=== PATIENT | male | born 1995 | race Caucasian/White ===

== ENCOUNTER 2018-07-27 06:13 | Emergency (ER) | payer BC, OTHER ==
[2018-07-27 06:19] VITALS: PULSE 78; RESP 18
[2018-07-27] MEDS: PANTOPRAZOLE 40 MG/10 ML VIAL IVP STA (06:48)
[2018-07-27] MEDS: ONDANSETRON 4 MG/2 ML VIAL IVP STA ×2 (06:48→06:49)
[2018-07-27] MEDS: SODIUM CHLORIDE 0.9% 1,000 ML IV STA ×3 (06:48→06:49)
[2018-07-27 06:51] LABS: Basophils % (A) 0 %; Eosinophils # (A) 0.2 k/uL (0-0.7); Eosinophils % (A) 2 %; HCT 50.6 % (39.0-53.0); Lymphocytes # (A) 0.3 k/uL (1.0-4.8); Lymphocytes % (A) 3 %; MCH 31.1 pg (25.0-35.0); MCHC 33.6 g/dL (31.0-37.0); MCV 92.6 fL (80.0-100.0); Mean Platelet Volume 7.4; Monocytes # (A) 0.4 k/uL (0-1.0); Monocytes % (A) 3 %; Neutrophils # (A) 9.4 k/uL (1.3-7.7); Neutrophils % (A) 91 %; Platelet Count 188 k/uL (150-450); RBC 5.46 m/uL (4.30-5.90); RDW 12.4 % (11.5-15.5); WBC 10.3 k/uL (3.8-10.6)
[2018-07-27 07:02] LABS: ALT 35 U/L (21-72); AST 24 U/L (17-59); Albumin 5.3 g/dL (3.5-5.0); Alkaline Phosphatase 81 U/L (38-126); Amylase 56 U/L (30-110); Anion Gap 10 mmol/L; Blood Urea Nitrogen 18 mg/dL (9-20); Carbon Dioxide 28 mmol/L (22-30); Chloride 101 mmol/L (98-107); Glucose 113 mg/dL (74-99); Lipase 60 U/L (23-300); Magnesium 1.7 mg/dL (1.6-2.3); Phosphorus 2.3 mg/dL (2.5-4.5); Potassium 3.6 mmol/L (3.5-5.1); Sodium 139 mmol/L (137-145); Total Bilirubin 0.9 mg/dL (0.2-1.3); Total Protein 8.1 g/dL (6.3-8.2)
--- NOTE | 2018-07-27 07:33 | ED ---
General Adult HPI - General Chief complaint: Nausea/Vomiting/Diarrhea Stated complaint: Vomiting Time Seen by Provider: 07/27/18 07:18 Source: patient, RN notes reviewed Mode of arrival: ambulatory Limitations: no limitations - History of Present Illness Initial comments: Patient is a pleasant 23-year-old male presenting to the emergency Department with complaints of nausea and vomiting. Onset of symptoms was around 11:30 last night. Patient has had approximately a dozen episodes of vomiting. Patient received antiemetic in the emergency department and is starting to feel somewhat better. No constipation or diarrhea. No significant abdominal discomfort however patient has some mild nausea. - Related Data Home Medications Medication Instructions Recorded Confirmed [id number]-Cuke [id number] 2 tab PO Q6HR PRN 07/27/18 07/27/18 [Excedrin] Previous Rx's Medication Instructions Recorded Ondansetron Odt [Zofran Odt] 4 mg PO Q8HR PRN #10 tab 07/27/18 Allergies Allergy/AdvReac Type Severity Reaction Status Date / Time No Known Allergies Allergy Verified 07/27/18 06:56 Review of Systems ROS Statement: Those systems with pertinent positive or pertinent negative responses have been documented in the HPI. ROS Other: All systems not noted in ROS Statement are negative. Constitutional: Denies: fever Eyes: Denies: eye pain ENT: Denies: ear pain Respiratory: Denies: cough Cardiovascular: Denies: chest pain Endocrine: Denies: fatigue Gastrointestinal: Reports: nausea, vomiting. Denies: diarrhea, constipation Genitourinary: Denies: dysuria Musculoskeletal: Denies: arthralgia Skin: Denies: rash Neurological: Denies: weakness Past Medical History Past Medical History: COPD History of Any Multi-Drug Resistant Organisms: None Reported Past Surgical History: No Surgical Hx Reported Past Psychological History: No Psychological Hx Reported Smoking Status: Never smoker Past Alcohol Use History: None Reported Past Drug Use History: None Reported General Exam Limitations: no limitations General appearance: alert, in no apparent distress Head exam: Present: atraumatic Eye exam: Present: normal appearance, PERRL ENT exam: Present: normal oropharynx Neck exam: Present: normal inspection Respiratory exam: Present: normal lung sounds bilaterally Cardiovascular Exam: Present: regular rate, normal rhythm GI/Abdominal exam: Present: soft. Absent: distended, tenderness Extremities exam: Present: normal inspection Back exam: Present: normal inspection. Absent: tenderness Neurological exam: Present: alert Psychiatric exam: Present: normal affect, normal mood Skin exam: Present: normal color Course Vital Signs 07/27/18 06:15 Temperature 98.6 F Pulse Rate 78 Respiratory 18 Rate Blood Pressure 117/71 O2 Sat by Pulse 98 Oximetry Medical Decision Making - Medical Decision Making Patient reevaluated and does feel much better. Patient does not want any further medication and is requesting discharge at this time. Patient updated on results and need for follow-up. - Lab Data Result diagrams: 07/27/18 06:34 07/27/18 06:34 Lab Results 07/27/18 07/27/18 07/27/18 Range/Units 06:34 06:34 07:59 WBC 10.3 (3.8-10.6) k/uL RBC 5.46 (4.30-5.90) m/uL Hgb 17.0 (13.0-17.5) gm/dL Hct 50.6 (39.0-53.0) % MCV 92.6 (80.0-100.0) fL MCH 31.1 (25.0-35.0) pg MCHC 33.6 (31.0-37.0) g/dL RDW 12.4 (11.5-15.5) % Plt Count 188 (150-450) k/uL Neutrophils % 91 % Lymphocytes % 3 % Monocytes % 3 % Eosinophils % 2 % Basophils % 0 % Neutrophils # 9.4 H (1.3-7.7) k/uL Lymphocytes # 0.3 L (1.0-4.8) k/uL Monocytes # 0.4 (0-1.0) k/uL Eosinophils # 0.2 (0-0.7) k/uL Basophils # 0.0 (0-0.2) k/uL Sodium 139 (137-145) mmol/L Potassium 3.6 (3.5-5.1) mmol/L Chloride 101 (98-107) mmol/L Carbon Dioxide 28 (22-30) mmol/L Anion Gap 10 mmol/L BUN 18 (9-20) mg/dL Creatinine 0.87 (0.66-1.25) mg/dL Est GFR (CKD-EPI)AfAm >90 (>60 ml/min/1.73 sqM) Est GFR (CKD-EPI)NonAf >90 (>60 ml/min/1.73 sqM) Glucose 113 H (74-99) mg/dL Calcium 10.0 (8.4-10.2) mg/dL Phosphorus 2.3 L (2.5-4.5) mg/dL Magnesium 1.7 (1.6-2.3) mg/dL Total Bilirubin 0.9 (0.2-1.3) mg/dL AST 24 (17-59) U/L ALT 35 (21-72) U/L Alkaline Phosphatase 81 (38-126) U/L Total Protein 8.1 (6.3-8.2) g/dL Albumin 5.3 H (3.5-5.0) g/dL Amylase 56 (30-110) U/L Lipase 60 (23-300) U/L Urine Color Yellow Urine Appearance Clear (Clear) Urine pH 7.0 (5.0-8.0) Ur Specific [place] 1.020 (1.001-1.035) Urine Protein Negative (Negative) Urine Glucose (UA) Negative (Negative) Urine Blood Negative (Negative) Urine Nitrite Negative (Negative) Urine Bilirubin Negative (Negative) Urine Urobilinogen 2.0 (<2.0) mg/dL Ur Leukocyte Esterase Negative (Negative) Disposition Clinical Impression: Vomiting Disposition: HOME SELF-CARE Condition: Stable Instructions (If sedation given, give patient instructions): Acute Nausea and Vomiting (ED) Additional Instructions: Please follow-up with primary care physician in the next day or 2 for recheck. Return for uncontrolled vomiting, pain, worsening or change in symptoms or other concerns. Prescriptions: Ondansetron Odt [Zofran Odt] 4 mg PO Q8HR PRN #10 tab PRN Reason: Nausea Is patient prescribed a controlled substance at d/c from ED?: No Referrals: Joshua Smith MD [REFERRING] - 1-2 days Ramon Martins MD [STAFF PHYSICIAN] - 1-2 days Time of Disposition: 08:19
[2018-07-27 08:10] LABS: Appearance,Urine Clear (Clear); Bilirubin,Urine Negative (Negative); Blood,Urine Negative (Negative); Color,Urine Yellow; Glucose,Urine (UA) Negative (Negative); Ketones,Urine 2+ (Negative); Leukocyte Esterase,Urine Negative (Negative); Nitrite,Urine Negative (Negative); Protein,Urine Negative (Negative)
[2018-07-27 08:27] VITALS: BP 115/68; TEMP 98
== END 2018-07-27 08:27 | disposition home or self-care (01) ==
LOC: EC 06:13
DX: R11.2 Nausea with vomiting, unspecified (principal); Z53.8 Procedure and treatment not carried out for other reasons
CPT/HCPCS: 36415; 80053; 82150; 83690; 83735; 84100; 85025; 81003; 99284; 96374; 96375; 96361; J2405; C9113

== ENCOUNTER 2021-07-20 13:09 | Emergency (ER) | payer OTHER ==
[2021-07-20 13:30] VITALS: BP 103/69; PULSE 102; RESP 20; TEMP 98.1
[2021-07-20] MEDS ORDERED: ACETAMINOPHEN TAB 325 MG TAB PO STA (13:31)
[2021-07-20] MEDS ORDERED: SODIUM CHLORIDE 0.9% 1,000 ML IV STA (13:54)
[2021-07-20] MEDS ORDERED: MORPHINE SULFATE 4 MG/ML SYRINGE IVP STA (13:54)
[2021-07-20 14:31] LABS: Basophils % (A) 1 %; Eosinophils # (A) 0.1 k/uL (0-0.7); Eosinophils % (A) 1 %; Lymphocytes # (A) 0.9 k/uL (1.0-4.8); Lymphocytes % (A) 10 %; MCHC 34.2 g/dL (31.0-37.0); MCV 93.4 fL (80.0-100.0); Mean Platelet Volume 8.3; Monocytes # (A) 0.4 k/uL (0-1.0); Monocytes % (A) 5 %; Neutrophils # (A) 7.2 k/uL (1.3-7.7); Neutrophils % (A) 83 %; Platelet Count 211 k/uL (150-450); RBC 4.39 m/uL (4.30-5.90); RDW 13.2 % (11.5-15.5); WBC 8.7 k/uL (3.8-10.6)
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
[2021-07-20 14:46] LABS: African American GFR (CKD) >90 (>60 ml/min/1.73 sqM); Anion Gap 12 mmol/L; Blood Urea Nitrogen 19 mg/dL (9-20); C Reactive Protein <0.5 mg/dL (<1.0); Calcium 9.6 mg/dL (8.4-10.2); Carbon Dioxide 26 mmol/L (22-30); Chloride 101 mmol/L (98-107); Glucose 90 mg/dL (74-99); Non-African American GFR(CKD) >90 (>60 ml/min/1.73 sqM); Potassium 3.6 mmol/L (3.5-5.1); Sodium 139 mmol/L (137-145)
[2021-07-20] MEDS ORDERED: CLINDAMYCIN 300 MG in DEXTROSE 5% IN WATER 50 ML IVPB STA ×2 (14:54)
[2021-07-20] MEDS ORDERED: CLINDAMYCIN 150 MG CAP PO STA (15:08)
[2021-07-20 15:25] LABS: Erythrocyte Sedimentation Rate 2 mm/hr (0-15)
== END 2021-07-20 15:24 | disposition home or self-care (01) ==
LOC: EC 13:09
DX: S89.91XA Unspecified injury of right lower leg, initial encounter (principal); S82.001A Unspecified fracture of right patella, initial encounter for closed fracture; J45.909 Unspecified asthma, uncomplicated; X58.XXXA Exposure to other specified factors, initial encounter
CPT/HCPCS: 36415; 80048; 83605; 83735; 85025; 85652; 86140; 87040; 99283

== ENCOUNTER 2021-11-01 10:14 | Emergency (ER) | payer OTHER ==
[2021-11-01 10:22] VITALS: TEMP 98.3
[2021-11-01] MEDS ORDERED: HYOSCYAMINE SULFATE 0.125 MG TAB PO STA (10:58)
--- NOTE | 2021-11-01 11:47 | CT ---
EXAMINATION TYPE: CT abdomen pelvis wo con DATE OF EXAM: 11/01/2021 COMPARISON: None available HISTORY: diarrhea CT DLP: 328.3 mGycm Automated exposure control for dose reduction was used. TECHNIQUE: Helical acquisition of images was performed from the lung bases through the pelvis. FINDINGS: LUNG BASES: No significant abnormality is appreciated. LIVER/GB: No significant abnormality is appreciated. PANCREAS: No significant abnormality is seen. SPLEEN: No significant abnormality is seen. ADRENALS: No significant abnormality is seen. KIDNEYS: No significant abnormality is seen. FREE AIR: No free air is visualized RETROPERITONEAL ADENOPATHY: None visualized REPRODUCTIVE ORGANS: No significant abnormality is seen URINARY BLADDER: Not completely distended. PELVIC ADENOPATHY: No pathologically enlarged lymph nodes. OSSEOUS STRUCTURES: No aggressive bone lesion. BOWEL: Unremarkable nondistended stomach and duodenum. Suboptimal assessment of the small and large bowel due to paucity of intra-abdominal fat and lack of IV contrast administration. Slightly thickene d small bowel loops in the left side of the abdomen with surrounding fat stranding, underlying inflam matory/infectious process cannot be excluded. No evidence of bowel obstruction. Segments of mild wall thickening of the colon, nonspecific. No colonic obstruction. No evidence of acute appendicitis. OTHER: No sizable ascites. IMPRESSION: No evidence of small or large bowel obstruction. The described changes in the left side of the abdome n could be related to acute inflammatory/infectious process of the small bowel, please correlate clin ically. Mild colitis cannot be also excluded.
[2021-11-01 12:11] LABS: Appearance,Urine Clear (Clear); Bilirubin,Urine Negative (Negative); Blood,Urine Negative (Negative); Color,Urine Yellow; Glucose,Urine (UA) Negative (Negative); Ketones,Urine Negative (Negative); Leukocyte Esterase,Urine Negative (Negative); Nitrite,Urine Negative (Negative); Protein,Urine Negative (Negative); Specific Gravity,Urine 1.021 (1.001-1.035); Urobilinogen,Urine <2.0 mg/dL (<2.0)
[2021-11-01 13:45] VITALS: BP 128/79; PULSE 78; RESP 18
[2021-11-01 13:51] LABS: Basophils # (A) 0.1 k/uL (0-0.2); Basophils % (A) 1 %; Eosinophils % (A) 1 %; HCT 50.9 % (39.0-53.0); HGB 16.4 gm/dL (13.0-17.5); Lymphocytes # (A) 1.1 k/uL (1.0-4.8); Lymphocytes % (A) 18 %; MCH 31.1 pg (25.0-35.0); MCHC 32.3 g/dL (31.0-37.0); MCV 96.3 fL (80.0-100.0); Mean Platelet Volume 9.3; Monocytes # (A) 0.3 k/uL (0-1.0); Monocytes % (A) 5 %; Neutrophils # (A) 4.5 k/uL (1.3-7.7); Neutrophils % (A) 75 %; Platelet Count 237 k/uL (150-450); RBC 5.28 m/uL (4.30-5.90); RDW 12.1 % (11.5-15.5)
[2021-11-01 14:14] LABS: ALT 23 U/L (4-49); AST 30 U/L (17-59); African American GFR (CKD) >90 (>60 ml/min/1.73 sqM); Albumin 4.9 g/dL (3.5-5.0); Alkaline Phosphatase 70 U/L (38-126); Amylase 68 U/L (30-110); Anion Gap 7 mmol/L; Blood Urea Nitrogen 14 mg/dL (9-20); Calcium 9.5 mg/dL (8.4-10.2); Carbon Dioxide 30 mmol/L (22-30); Chloride 100 mmol/L (98-107); Glucose 105 mg/dL (74-99); Lipase 41 U/L (23-300); Non-African American GFR(CKD) >90 (>60 ml/min/1.73 sqM); Potassium 4.2 mmol/L (3.5-5.1); Sodium 137 mmol/L (137-145); Total Bilirubin 0.8 mg/dL (0.2-1.3); Total Protein 7.8 g/dL (6.3-8.2)
--- NOTE | 2021-11-01 14:46 | ED ---
Abdominal Pain HPI - General Chief Complaint: Abdominal Pain Stated Complaint: diarrhea Time Seen by Provider: 11/01/21 10:46 Source: patient Mode of arrival: ambulatory Limitations: no limitations - History of Present Illness Initial Comments: Patient is a 26-year-old male presents to the emergency room with complaints of persistent worsening abdominal pain, diarrhea and rectal pain. He states that the pain and diarrhea has been ongoing for years but recently worsened. He states the pain is is self-limiting and he denies any at this time. He is unable to identify any aggravating or alleviating factors. He does not follow with a primary care provider and has never seen GI for the symptoms in the past. He denies any mucus or blood in the stool. He denies any weight changes. He has a past medical history significant for COPD. He denies any other complaints or concerns at this time. - Related Data Previous Rx's Medication Instructions Recorded Hyoscyamine Sulfate [Levsin] 0.125 mg PO Q6H PRN #30 tab 11/01/21 Allergies Allergy/AdvReac Type Severity Reaction Status Date / Time No Known Allergies Allergy Verified 11/01/21 11:32 Review of Systems ROS Statement: Those systems with pertinent positive or pertinent negative responses have been documented in the HPI. ROS Other: All systems not noted in ROS Statement are negative. Past Medical History Past Medical History: COPD History of Any Multi-Drug Resistant Organisms: None Reported Past Surgical History: No Surgical Hx Reported Past Psychological History: No Psychological Hx Reported Smoking Status: Never smoker Past Alcohol Use History: Occasional Past Drug Use History: None Reported General Exam Limitations: no limitations General appearance: alert, in no apparent distress Head exam: Present: atraumatic Eye exam: Present: normal appearance, PERRL, EOMI. Absent: scleral icterus, conjunctival injection, periorbital swelling ENT exam: Present: normal exam, mucous membranes moist Neck exam: Present: normal inspection. Absent: tenderness, meningismus, lymphad enopathy Respiratory exam: Present: normal lung sounds bilaterally. Absent: respiratory distress, wheezes, rales, rhonchi, stridor Cardiovascular Exam: Present: regular rate, normal rhythm, normal heart sounds. Absent: systolic murmur, diastolic murmur, rubs, gallop, clicks GI/Abdominal exam: Present: soft, tenderness (mild left lower quadrant), normal bowel sounds. Absent: distended, rebound, rigid, organomegaly, mass Rectal exam: Present: normal inspection, normal rectal tone. Absent: black stool, bloody stool, fecal impaction, hemorrhoids, mass, tenderness Extremities exam: Present: normal inspection, full ROM, normal capillary refill. Absent: tenderness, pedal edema, joint swelling, calf tenderness Back exam: Present: normal inspection Neurological exam: Present: alert, oriented X3, CN II-XII intact Psychiatric exam: Present: normal affect, normal mood Skin exam: Present: warm, dry, intact, normal color. Absent: rash Course Vital Signs 11/01/21 11/01/21 11/01/21 10:18 11:45 13:44 Temperature 98.3 F Pulse Rate 67 62 78 Respiratory 18 16 18 Rate Blood Pressure 124/85 122/80 128/79 O2 Sat by Pulse 98 97 99 Oximetry Medical Decision Making - Medical Decision Making No recurrence of abdominal pain. No significant anomalies on exam. Computed tomography scan reviewed as indicated below. Labs normal. - Lab Data Result diagrams: 11/01/21 11:11 11/01/21 13:35 Lab Results 11/01/21 11/01/21 11/01/21 Range/Units 11:11 11:31 13:35 WBC 6.0 (3.8-10.6) k/uL RBC 5.28 (4.30-5.90) m/uL Hgb 16.4 (13.0-17.5) gm/dL Hct 50.9 (39.0-53.0) % MCV 96.3 (80.0-100.0) fL MCH 31.1 (25.0-35.0) pg MCHC 32.3 (31.0-37.0) g/dL RDW 12.1 (11.5-15.5) % Plt Count 237 (150-450) k/uL MPV 9.3 Neutrophils % 75 % Lymphocytes % 18 % Monocytes % 5 % Eosinophils % 1 % Basophils % 1 % Neutrophils # 4.5 (1.3-7.7) k/uL Lymphocytes # 1.1 (1.0-4.8) k/uL Monocytes # 0.3 (0-1.0) k/uL Eosinophils # 0.0 (0-0.7) k/uL Basophils # 0.1 (0-0.2) k/uL Sodium 137 (137-145) mmol/L Potassium 4.2 (3.5-5.1) mmol/L Chloride 100 (98-107) mmol/L Carbon Dioxide 30 (22-30) mmol/L Anion Gap 7 mmol/L BUN 14 (9-20) mg/dL Creatinine 0.88 (0.66-1.25) mg/dL Est GFR (CKD-EPI)AfAm >90 (>60 ml/min/1.73 sqM) Est GFR (CKD-EPI)NonAf >90 (>60 ml/min/1.73 sqM) Glucose 105 H (74-99) mg/dL Calcium 9.5 (8.4-10.2) mg/dL Total Bilirubin 0.8 (0.2-1.3) mg/dL AST 30 (17-59) U/L ALT 23 (4-49) U/L Alkaline Phosphatase 70 (38-126) U/L Total Protein 7.8 (6.3-8.2) g/dL Albumin 4.9 (3.5-5.0) g/dL Amylase 68 (30-110) U/L Lipase 41 (23-300) U/L Urine Color Yellow Urine Appearance Clear (Clear) Urine pH 7.0 (5.0-8.0) Ur Specific [place] 1.021 (1.001-1.035) Urine Protein Negative (Negative) Urine Glucose (UA) Negative (Negative) Urine Ketones Negative (Negative) Urine Blood Negative (Negative) Urine Nitrite Negative (Negative) Urine Bilirubin Negative (Negative) Urine Urobilinogen <2.0 (<2.0) mg/dL Ur Leukocyte Esterase Negative (Negative) - Radiology Data Radiology results: report reviewed, image reviewed No evidence of small or large bowel obstruction left-sided abdominal changes likely related to acute inflammatory/infectious process of the small bowel. Mild colitis. Disposition Clinical Impression: Inflammatory bowel disease Disposition: HOME SELF-CARE Condition: Good Instructions (If sedation given, give patient instructions): Irritable Bowel Syndrome (ED) Prescriptions: Hyoscyamine Sulfate [Levsin] 0.125 mg PO Q6H PRN #30 tab PRN Reason: Gi Upset Is patient prescribed a controlled substance at d/c from ED?: No Referrals: None,Stated [Primary Care Provider] - 1-2 days Raghu,Yassine J, DO [Doctor of Osteopathic Medicine] - 1-2 days Time of Disposition: 14:38
== END 2021-11-01 14:59 | disposition home or self-care (01) ==
LOC: EC 10:14
DX: K58.9 Irritable bowel syndrome, unspecified (principal); J44.9 Chronic obstructive pulmonary disease, unspecified
CPT/HCPCS: 36415; 74176; 80053; 81003; 82150; 83690; 85025; 99284

== ENCOUNTER 2022-07-02 16:06 | Emergency (ER) | payer OTHER ==
[2022-07-02 16:10] VITALS: BP 127/79; PULSE 92; RESP 22; TEMP 98.5
[2022-07-02] MEDS ORDERED: KETOROLAC 15 MG/ML 1 ML VIAL IM STA (16:15)
[2022-07-02] MEDS ORDERED: DEXAMETHASONE SOD PHOSPHATE 10 MG/ML 1 ML VIAL IM STA (16:15)
--- NOTE | 2022-07-02 16:23 | ED ---
Back Pain HPI - General Chief Complaint: Back Pain/Injury Stated Complaint: back pain Time Seen by Provider: 07/02/22 16:12 Source: patient Limitations: no limitations - History of Present Illness Initial Comments: Patient is a 26-year-old male presenting with chief complaint of back pain. Patient has chronic back pain has been going on for the last 6-8 months, however today pain is worse. No injury or trauma, however patient states he does have a very physical job. He has been taking Motrin and Tylenol at home. No loss of bowel or bladder control or saddle paresthesia. No radiation of the pain down his legs. No numbness or tingling. No dysuria or hematuria. Pain feels like a tightening of the muscles to the bilateral lower back - Related Data Previous Rx's Medication Instructions Recorded Hyoscyamine Sulfate [Levsin] 0.125 mg PO Q6H PRN #30 tab 11/01/21 Cyclobenzaprine [Flexeril] 10 mg PO HS PRN #15 tab 07/02/22 Lidocaine 5% Patch [Lidoderm 5% 1 patch TOPICAL DAILY PRN #1 packet 07/02/22 Patch] Allergies Allergy/AdvReac Type Severity Reaction Status Date / Time No Known Allergies Allergy Verified 07/02/22 16:10 Review of Systems ROS Statement: Those systems with pertinent positive or pertinent negative responses have been documented in the HPI. ROS Other: All systems not noted in ROS Statement are negative. Past Medical History Past Medical History: COPD History of Any Multi-Drug Resistant Organisms: None Reported Past Surgical History: No Surgical Hx Reported Past Psychological History: No Psychological Hx Reported Smoking Status: Never smoker Past Alcohol Use History: Occasional Past Drug Use History: None Reported General Exam Limitations: no limitations General appearance: alert, in no apparent distress Head exam: Present: atraumatic, normocephalic, normal inspection Eye exam: Present: normal appearance Neck exam: Present: normal inspection, full ROM Back exam: Present: normal inspection, paraspinal tenderness Neurological exam: Present: alert, oriented X3, CN II-XII intact Psychiatric exam: Present: normal affect, normal mood Skin exam: Present: warm, dry, intact, normal color. Absent: rash Course Vital Signs 07/02/22 16:08 Temperature 98.5 F Pulse Rate 92 Respiratory 22 Rate Blood Pressure 127/79 O2 Sat by Pulse 99 Oximetry Medical Decision Making - Medical Decision Making Was pt. sent in by a medical professional or institution (GAVINO Myers, [employer] TECHNICAL OFFICER, urgent care, hospital, or senior care...) When possible be specific @ -No Did you speak to anyone other than the patient for history (EMS, parent, family, police, friend...)? What history was obtained from this source @ -No Did you review nursing and triage notes (agree or disagree)? Why? @ -I reviewed and agree with nursing and triage notes Were old charts reviewed (outside hosp., previous admission, EMS record, old EKG, old radiological studies, urgent care reports/EKG's, senior care records)? Report findings @ -No old charts were reviewed Differential Diagnosis (chest pain, altered mental status, abdominal pain women, abdominal pain men, vaginal bleeding, weakness, fever, dyspnea, syncope, hea dache, dizziness, GI bleed, back pain, seizure, CVA, palpatations, mental health)? @ -Differential includes muscle spasm, strain, kidney stone, pyelonephritis, cauda equina EKG interpreted by me (3pts min.). @ -As above X-rays interpreted by me (1pt min.). @ -X-ray shows no acute process CT interpreted by me (1pt min.). @ -None done U/S interpreted by me (1pt. min.). @ -None done What testing was considered but not performed or refused? (CT, X-rays, U/S, labs)? Why? @ -None What meds were considered but not given or refused? Why? @ -None Did you discuss the management of the patient with other professionals (professionals i.e. GAVINO Myers, [employer] TECHNICAL OFFICER, lab, RT, psych nurse, social media sr strategy manager, senior environmental technician, teacher, morals squad police officer, casework manager)? Give summary @ -No Was smoking cessation discussed for >3mins.? @ -No Was critical care preformed (if so, how long)? @ -No Were there social determinants of health that impacted care today? How? (Homelessness, low income, unemployed, alcoholism, drug addiction, transportation, low edu. Level, literacy, decrease access to med. care, halfway, rehab)? @ -No Was there de-escalation of care discussed even if they declined (Discuss DNR or withdrawal of care, Hospice)? DNR status @ -No What co-morbidities impacted this encounter? (DM, HTN, Smoking, COPD, CAD, Cancer, CVA, ARF, Chemo, Hep., AIDS, mental health diagnosis, sleep apnea, morbid obesity)? @ -None Was patient admitted / discharged? Hospital course, mention meds given and route, prescriptions, significant lab abnormalities, going to OR and other pertinent info. @ -Patient is a 26-year-old male presenting with chief complaint of lower back pain. Pain is been present for months, however today is worse than normal. No injury or trauma. No red flag symptoms. No urinary symptoms. On physical examination there is some paraspinal muscle tenderness. X-ray shows no acute process. Patient reports relief after Toradol and Decadron. He said a prescription for cyclobenzaprine and lidocaine patches. Follow-up with PCP. Report back to ER with any new or worsening symptoms. Discussed return parameters and answered all questions. Patient conveyed verbal understanding and agreed to the plan. I discussed this case in detail with my attending Dr. Lozoya Undiagnosed new problem with uncertain prognosis? @ -No Drug Therapy requiring intensive monitoring for toxicity (Heparin, Nitro, Insulin, Cardizem)? @ -No Were any procedures done? @ -No Diagnosis/symptom? @ -Mechanical back pain Acute, or Chronic, or Acute on Chronic? @ -Acute Uncomplicated (without systemic symptoms) or Complicated (systemic symptoms)? @ -Uncomplicated Side effects of treatment? @ -No Exacerbation, Progression, or Severe Exacerbation? @ -No Poses a threat to life or bodily function? How? (Chest pain, USA, SC, pneumonia, PE, COPD, DKA, ARF, appy, cholecystitis, CVA, Diverticulitis, Homicidal, Suicidal, threat to staff... and all critical care pts) @ -No Disposition Clinical Impression: Mechanical back pain Disposition: HOME SELF-CARE Condition: Good Instructions (If sedation given, give patient instructions): Acute Low Back Pain (ED), Lower Back Exercises (ED) Additional Instructions: Follow-up with PCP. Report back to ER with any new or worsening symptoms. Take Motrin and Tylenol. Pain control. Take medication as prescribed. Do not take cyclobenzaprine before driving or operating heavy machinery as it may cause drowsiness. Use heat and ice as needed. Prescriptions: Cyclobenzaprine [Flexeril] 10 mg PO HS PRN #15 tab PRN Reason: Spasms Lidocaine 5% Patch [Lidoderm 5% Patch] 1 patch TOPICAL DAILY PRN #1 packet PRN Reason: Pain Is patient prescribed a controlled substance at d/c from ED?: No Referrals: None,Stated [Primary Care Provider] - 1-2 days Time of Disposition: 17:03
--- NOTE | 2022-07-02 16:33 | XR ---
EXAMINATION TYPE: XR lumbar spine 2 or 3V DATE OF EXAM: 07/02/2022 COMPARISON: NONE HISTORY: Back pain TECHNIQUE: 3 view FINDINGS: Lumbar vertebrae have normal alignment. Posterior elements are intact. No compression frac ture. Sacroiliac joints are intact. IMPRESSION: Negative lumbar spine exam. No fracture.
[2022-07-02] MEDS ORDERED: CYCLOBENZAPRINE 10MG STARTER 3 TAB BTL PO STA (17:03)
== END 2022-07-02 17:09 | disposition home or self-care (01) ==
LOC: EC 16:06
DX: M54.50 Low back pain, unspecified (principal); J44.9 Chronic obstructive pulmonary disease, unspecified
CPT/HCPCS: 72100; 99283; 96372 ×2; J1100; J1885

== ENCOUNTER 2022-11-26 19:49 | Emergency (ER) | payer OTHER ==
[2022-11-26 20:16] VITALS: BP 117/78; PULSE 62; RESP 18; TEMP 98.5
[2022-11-26] MEDS ORDERED: SODIUM CHLORIDE 0.9% 500 ML 500 ML IV STA (21:52)
[2022-11-26 22:27] LABS: Basophils % (A) 1 %; Eosinophils # (A) 0.1 k/uL (0-0.7); Eosinophils % (A) 1 %; HGB 16.3 gm/dL (13.0-17.5); Lymphocytes # (A) 1.9 k/uL (1.0-4.8); Lymphocytes % (A) 22 %; MCH 32.3 pg (25.0-35.0); MCHC 33.9 g/dL (31.0-37.0); MCV 95.2 fL (80.0-100.0); Mean Platelet Volume 10.6; Monocytes # (A) 0.5 k/uL (0-1.0); Monocytes % (A) 6 %; Neutrophils # (A) 6.2 k/uL (1.3-7.7); Neutrophils % (A) 69 %; Platelet Count 216 k/uL (150-450); RBC 5.04 m/uL (4.30-5.90); RDW 12.4 % (11.5-15.5); WBC 8.9 k/uL (3.8-10.6)
[2022-11-26 22:35] LABS: ALT 30 U/L (4-49); African American GFR (CKD) >90 (>60 ml/min/1.73 sqM); Albumin 5.3 g/dL (3.5-5.0); Amylase 65 U/L (30-110); Anion Gap 11 mmol/L; Blood Urea Nitrogen 17 mg/dL (9-20); Calcium 9.7 mg/dL (8.4-10.2); Carbon Dioxide 28 mmol/L (22-30); Chloride 99 mmol/L (98-107); Glucose 78 mg/dL (74-99); Lipase 69 U/L (23-300); Non-African American GFR(CKD) >90 (>60 ml/min/1.73 sqM); Sodium 138 mmol/L (137-145); Total Bilirubin 0.6 mg/dL (0.2-1.3); Total Protein 8.3 g/dL (6.3-8.2)
[2022-11-26 22:37] LABS: AST 37 U/L (17-59); Alkaline Phosphatase 54 U/L (38-126); Potassium 4.1 mmol/L (3.5-5.1)
--- NOTE | 2022-11-26 22:55 | ED ---
GI Bleed HPI - General Chief complaint: Abdominal Pain Stated complaint: blood in stool Time Seen by Provider: 11/26/22 21:14 Source: patient, RN notes reviewed, old records reviewed Mode of arrival: ambulatory Limitations: no limitations - History of Present Illness Initial comments: This is a 27-year-old male to the emergency department today for evaluation for evaluation abdominal pain. Patient is having abdominal pain here in the ER chronic in nature. Suffers from diarrhea for months. Patient was scheduled for a colonoscopy did not have completed. Patient has persistent nausea vomiting with diarrhea but mostly complains of diarrhea. Patient did have a couple bouts of loose stools today and then noticed blood in his stool. MD complaint: blood on toilet paper, blood streaked stool -: month(s) Radiation: none Quality: cramping Consistency: intermittent Improves with: none Worsens with: none Associated Symptoms: nausea, loss of appetite, weakness - Related Data Previous Rx's Medication Instructions Recorded Hyoscyamine Sulfate [Levsin] 0.125 mg PO Q6H PRN #30 tab 11/01/21 Cyclobenzaprine [Flexeril] 10 mg PO HS PRN #15 tab 07/02/22 Lidocaine 5% Patch [Lidoderm 5% 1 patch TOPICAL DAILY PRN #1 packet 07/02/22 Patch] Tobramycin 0.3% Ophth Soln [Tobrex 1 - 2 drop RIGHT EYE Q4H #5 ml 10/03/22 0.3% Ophth Soln] Allergies Allergy/AdvReac Type Severity Reaction Status Date / Time No Known Allergies Allergy Verified 10/03/22 13:25 Review of Systems ROS Statement: Those systems with pertinent positive or pertinent negative responses have been documented in the HPI. ROS Other: All systems not noted in ROS Statement are negative. Past Medical History Past Medical History: COPD History of Any Multi-Drug Resistant Organisms: None Reported Past Surgical History: No Surgical Hx Reported Past Psychological History: No Psychological Hx Reported Smoking Status: Never smoker Past Alcohol Use History: Occasional Past Drug Use History: Marijuana General Exam General appearance: alert, in no apparent distress Head exam: Present: atraumatic, normocephalic, normal inspection Eye exam: Present: normal appearance, PERRL, EOMI. Absent: scleral icterus, conjunctival injection, periorbital swelling ENT exam: Present: normal exam, mucous membranes moist Neck exam: Present: normal inspection. Absent: tenderness, meningismus, lymphadenopathy Respiratory exam: Present: normal lung sounds bilaterally. Absent: respiratory distress, wheezes, rales, rhonchi, stridor Cardiovascular Exam: Present: regular rate, normal rhythm, normal heart sounds. Absent: systolic murmur, diastolic murmur, rubs, gallop, clicks GI/Abdominal exam: Present: soft, normal bowel sounds. Absent: distended, tenderness, guarding, rebound, rigid Extremities exam: Present: normal inspection, full ROM, normal capillary refill. Absent: tenderness, pedal edema, joint swelling, calf tenderness Back exam: Present: normal inspection Neurological exam: Present: alert, oriented X3, CN II-XII intact Psychiatric exam: Present: normal affect, normal mood Skin exam: Present: warm, dry, intact, normal color. Absent: rash Course Vital Signs 11/26/22 20:12 Temperature 98.5 F Pulse Rate 62 Respiratory 18 Rate Blood Pressure 117/78 O2 Sat by Pulse 98 Oximetry - Reevaluation(s) Reevaluation #1: 11/27/22 06:59 Medical records reviewed Reevaluation #2: 11/27/22 06:59 No recurrent bloody bowel movements here in the ER Reevaluation #3: 11/27/22 06:59 Patient informed results questions answered Reevaluation #4: 11/27/22 06:59 Was pt. sent in by a medical professional or institution? @ -no Did you speak to anyone other than the patient for history? @ -no Did you review nursing and triage notes? @ -agree Were old charts reviewed? @ -yes Differential Diagnosis? @ -prior EKG interpreted by me (3pts min.)? @ -no X-rays interpreted by me (1pt min.)? @ -no CT interpreted by me (1pt min.)? @ -yes U/S interpreted by me (1pt. min.)? @ -no What testing was considered but not performed? (CT, X-rays, U/S, labs)? Why? @ -no What meds were considered but not given? Why? @ -no Did you discuss the management of the patient with other professionals? @ -no Did you reconcile home meds? @ -no Was smoking cessation discussed for >3mins.? @ -no Was critical care preformed (if so, how long)? @ -no Were there social determinants of health that impacted care today? How? (Homel essness, low income, unemployed, alcoholism, drug addiction, transportation, low edu. Level, literacy, decrease access to med. care, detention, rehab)? @ -no Was there de-escalation of care discussed even if they declined? (Discuss DNR or withdrawal of care, Hospice)? @ -no What co-morbidities impacted this encounter? (DM, HTN, Smoking, COPD, CAD, Cancer, CVA, Hep., AIDS, mental health diagnosis, sleep apnea, morbid obesity)? @ -none Was patient admitted / discharged? @ -27 male to the emergency department for evaluation of GI bleed , patient complains of blood in the stool with abdominal pain. Testing labs and imaging are negative here in the ER feels the patient has no recurrent blood or bloody bowel movements here in the ER, he is well for discharge home Discharge Undiagnosed new problem with uncertain prognosis? @ -no Drug Therapy requiring intensive monitoring for toxicity (Heparin, Nitro, Insulin, Cardizem)? @ -no Were any procedures done? @ -no Diagnosis/symptom? @ -Abdominal pain, GI bleed Acute, or Chronic, or Acute on Chronic? @ -acute Uncomplicated (without systemic symptoms) or Complicated (systemic symptoms)? @ -complicated Side effects of treatment? @ -no Exacerbation, Progression, or Severe Exacerbation] @ -no Poses a threat to life or bodily function? @ -mp Reevaluation #5: 11/27/22 07:00 Differential Abdominal Pain Men: Appendicitis, cholecystitis, diverticulosis, ischemic bowel, pancreatitis, hepatitis, UTI, gastroenteritis, AAA, incarcerated hernia, bowel obstruction, constipation, inflammatory bowel, hepatitis, peptic ulcer disease, splenic infarction, perforated viscus, testicular torsion, this is not meant to be an all-inclusive list Medical Decision Making - Medical Decision Making 27 male to the emergency department for evaluation of GI bleed , patient complains of blood in the stool with abdominal pain. Testing labs and imaging are negative here in the ER feels the patient has no recurrent blood or bloody bowel movements here in the ER, he is well for discharge home - Lab Data Result diagrams: 11/26/22 22:00 11/26/22 22:00 Lab Results 11/26/22 11/26/22 Range/Units 22:00 22:00 WBC 8.9 (3.8-10.6) k/uL RBC 5.04 (4.30-5.90) m/uL Hgb 16.3 (13.0-17.5) gm/dL Hct 48.0 (39.0-53.0) % MCV 95.2 (80.0-100.0) fL MCH 32.3 (25.0-35.0) pg MCHC 33.9 (31.0-37.0) g/dL RDW 12.4 (11.5-15.5) % Plt Count 216 (150-450) k/uL MPV 10.6 Neutrophils % 69 % Lymphocytes % 22 % Monocytes % 6 % Eosinophils % 1 % Basophils % 1 % Neutrophils # 6.2 (1.3-7.7) k/uL Lymphocytes # 1.9 (1.0-4.8) k/uL Monocytes # 0.5 (0-1.0) k/uL Eosinophils # 0.1 (0-0.7) k/uL Basophils # 0.0 (0-0.2) k/uL Sodium 138 (137-145) mmol/L Potassium 4.1 (3.5-5.1) mmol/L Chloride 99 (98-107) mmol/L Carbon Dioxide 28 (22-30) mmol/L Anion Gap 11 mmol/L BUN 17 (9-20) mg/dL Creatinine 0.72 (0.66-1.25) mg/dL Est GFR (CKD-EPI)AfAm >90 (>60 ml/min/1.73 sqM) Est GFR (CKD-EPI)NonAf >90 (>60 ml/min/1.73 sqM) Glucose 78 (74-99) mg/dL Calcium 9.7 (8.4-10.2) mg/dL Total Bilirubin 0.6 (0.2-1.3) mg/dL AST 37 (17-59) U/L ALT 30 (4-49) U/L Alkaline Phosphatase 54 (38-126) U/L Total Protein 8.3 H (6.3-8.2) g/dL Albumin 5.3 H (3.5-5.0) g/dL Amylase 65 (30-110) U/L Lipase 69 (23-300) U/L - Radiology Data Radiology results: report reviewed (CT head and pelvis positive for colitis negative for significant acute disease), image reviewed Disposition Clinical Impression: Abdominal pain Disposition: HOME SELF-CARE Condition: Good Instructions (If sedation given, give patient instructions): Abdominal Pain (ED) Is patient prescribed a controlled substance at d/c from ED?: No Referrals: None,Stated [Primary Care Provider] - 1-2 days Time of Disposition: 00:15
--- NOTE | 2022-11-26 23:07 | CT ---
EXAMINATION TYPE: CT abdomen pelvis w con DATE OF EXAM: 11/26/2022 COMPARISON: 11/01/2021 INDICATION: abd pain DLP: 487.3 mGycm, Automated exposure control for dose reduction was used. CONTRAST: 100 mL of Isovue 300. Study performed without Oral Contrast TECHNIQUE: Axial images were obtained from above the diaphragm to the pubic rami in the axial plane a t 5 mm thick sections. Reconstructed images are reviewed on the computer in the coronal plane. FINDINGS: Limited CT sections are obtained the lung bases. The lung bases are clear. CT ABDOMEN: Liver: Normal Spleen: Normal Pancreas: Normal Adrenal glands: The adrenal glands are normal. Gallbladder: Normal Kidneys: No masses are evident. No hydronephrosis is present. No cysts are present. Delayed images were obtained through the kidneys, which remain unremarkable. Aorta: Normal Inferior vena cava: Normal. CT PELVIS: There are some fluid-filled small bowel loops within the pelvis. Correlate for mild ileus. Scattered mild fecal debris is within the colon. Small amount of increased density may be within the ascending colon region. Study is low oral contrast which may cause some limitation of bowel evaluation. Appendix: Not visualized. No dilated tubular structure or inflammatory changes are evident. Urinary bladder: Normal. Genitourinary structures: Prostate is unremarkable. Osseous structures: No suspicious lytic or sclerotic lesions. IMPRESSIONS: 1. Mild nonspecific small bowel loops containing fluid. Correlate for mild ileus.
== END 2022-11-27 00:24 | disposition home or self-care (01) ==
LOC: EC 19:49
DX: K92.2 Gastrointestinal hemorrhage, unspecified (principal); F12.90 Cannabis use, unspecified, uncomplicated
CPT/HCPCS: 36415; 80053; 82150; 83690; 85025; 74177; 99284; Q9967